=== PATIENT | male | born 1960 | race Caucasian/White ===

== ENCOUNTER 2022-10-09 10:44 | Inpatient (IN) | payer MEDICAID, SELFPAY ==
[2022-10-09 12:29] LABS: ALT (SGPT) 17 U/L (8-55); AST (SGOT) 31 U/L (5-34); Albumin 2.8 g/dL (3.4-4.8); Alkaline Phosphatase 85 U/L (40-110); Anion Gap 17 mmol/L (10-20); BUN (Urea Nitrogen) 21 mg/dL (8.4-25.7); Bilirubin, Total 0.3 mg/dL (0.2-1.2); Calc. Creatinine Clearance 0 mL/min (70-130); Calcium 7.5 mg/dL (7.8-10.44); Carbon Dioxide 21 mmol/L (23-31); Chloride 96 mmol/L (98-107); Estimated GFR 109; Globulin 2.3 g/dL (2.4-3.5); Glucose 86 mg/dL (80-115); Potassium 3.9 mmol/L (3.5-5.1); Protein, Total 5.1 g/dL (5.8-8.1); Sodium 130 mmol/L (136-145)
[2022-10-09] MEDS ORDERED: Ondansetron PF 4 MG/2 ML Vial ONE ×2 (12:33→18:38)
[2022-10-09 12:39] LABS: #Monocytes 0.5 10x3/uL (0.0-1.1); #Neutrophils 6.4 10x3/uL (1.5-8.4); %Basophils 0.2 % (0.0-2.0); %Lymphocytes 13.4 % (18.0-47.0); %Monocytes 6.6 % (0.0-10.0); %Neutrophils 79.3 % (40.0-75.0); Hematocrit 29.6 % (38.8-50.0); Hemoglobin 9.6 g/dL (13.5-17.5); Mean Corpuscular HGB CONC 32.4 g/dL (32.0-36.0); Mean Corpuscular Hemoglobin 23.8 pg (27.0-33.0); Mean Corpuscular Volume 73.3 fl (81.2-95.1); Mean Platelet Volume 8.9 fl (7.4-10.4); Platelet Count 528 10x3/uL (150-450); RBC Distribution Width 27.1 % (11.5-14.5); Red Blood Cell (RBC) Count 4.04 10x6/uL (4.32-5.72)
[2022-10-09 12:50] LABS: INR-International Normal Ratio 1.2; PTT 32.1 sec (22.0-33.0)
[2022-10-09 13:24] LABS: Anisocytosis SLIGHT = 6-15 cells (100X) (0-5/hpf); Hypochromia SLIGHT = 6-15 cells (100X) (0-5/hpf)
[2022-10-09 13:25] LABS: Elliptocytes SLIGHT = 2-5 cells (100X) (0-1/hpf); Target Cells SLIGHT = 2-5 cells (100X) (0-1/hpf)
[2022-10-09] MEDS ORDERED: Ondansetron PF 4 MG/2 ML Vial IVP PRN (15:08)
[2022-10-09] MEDS ORDERED: Fentanyl 250 MCG/5 ML VIAL ONE (18:03)
[2022-10-09] MEDS ORDERED: Midazolam HCl 2 mg/2 ml Vial ONE (18:03)
[2022-10-09] MEDS ORDERED: PROPOFOL 20 ML ONE (18:03)
[2022-10-09 18:28] LABS: Bilirubin 1+ (Negative); Blood, Urine 10 (Negative); Glucose, Urine (Dipstick) Normal (Negative); Ketone, Urine 50 mg/dL (Negative); Leukocyte 25 (Negative); Protein, Urine (Dipstick) 30 mg/dl (Neg-Trace)
[2022-10-09 18:33] LABS: Clarity Clear (Clear)
[2022-10-09] MEDS ORDERED: Succinylcholine 200 MG/10 ml SYRINGE FS ONE (18:38)
[2022-10-09] MEDS ORDERED: PHENYLEPHRINE-NS 100 MCG/ML 10 ML SYRINGE ONE (18:38)
[2022-10-09] MEDS ORDERED: Lidocaine 4% PF 5 ML AMP ONE (18:38)
[2022-10-09] MEDS ORDERED: Dexamethasone 4 mg/ml Vial ONE (18:38)
[2022-10-09] MEDS ORDERED: Rocuronium Bromide 10 MG/ML (10ML VIAL) ONE (18:38)
[2022-10-09] MEDS ORDERED: ePHEDrine Sulfate 50 MG/10 ML VIAL ONE (18:39)
[2022-10-09] MEDS ORDERED: Piperacillin/Tazobactam 3.375 GM VIAL ONE (18:43)
[2022-10-09] MEDS ORDERED: Albumin 5% 250 ML ONE (19:05)
[2022-10-09 19:13] LABS: Nitrite Negative (Negative)
[2022-10-09 19:14] LABS: Bacteria/HPF None Seen HPF (None Seen); CAUTI Indications for Culture Pelvic or flank pain; RBC/HPF None Seen HPF (0-3); Squamous Epithelial 0-3 HPF (0-3); Urine Culture Reflex No No; WBC/HPF None Seen HPF (0-3)
[2022-10-09] MEDS ORDERED: SUGAMMADEX SODIUM 200 MG/2 ML VIAL ONE (20:08)
[2022-10-09] MEDS ORDERED: fentaNYL 50 mcg/mL 1 mL Vial ONE (21:08)
[2022-10-09] MEDS ORDERED: Famotidine/PF 20 mg/2ml Vial SLOW IVP SCH (22:15)
[2022-10-09] MEDS ORDERED: Morphine 4 MG/ML VIAL SLOW IVP PRN (22:31)
[2022-10-09] MEDS ORDERED: Piperacillin/Tazobactam 3.375 GM in Sodium Chloride 0.9% 100 ML IVPB SCH (22:45)
[2022-10-09 22:51] VITALS: BMI 22.1
[2022-10-09] MEDS: Piperacillin/Tazobactam 3.375 GM in Sodium Chloride 0.9% 100 ML IVPB SCH (23:24)
[2022-10-09] MEDS: Lactated Ringer's 1,000 ML IV SCH (23:24)
[2022-10-09] MEDS: Nicotine 14 MG PATCH TD SCH (23:25)
[2022-10-09] MEDS: Ketorolac Tromethamine 30 MG/ML VIAL IVP SCH (23:25)
[2022-10-10 04:44] LABS: ALT (SGPT) 14 U/L (8-55); AST (SGOT) 23 U/L (5-34); Albumin 2.2 g/dL (3.4-4.8); Alkaline Phosphatase 57 U/L (40-110); Anion Gap 14 mmol/L (10-20); BUN (Urea Nitrogen) 19 mg/dL (8.4-25.7); Bilirubin, Total 0.3 mg/dL (0.2-1.2); Calc. Creatinine Clearance 125 mL/min (70-130); Calcium 6.8 mg/dL (7.8-10.44); Carbon Dioxide 19 mmol/L (23-31); Chloride 104 mmol/L (98-107); Estimated GFR 111; Globulin 1.6 g/dL (2.4-3.5); Glucose 101 mg/dL (80-115); Potassium 2.6 mmol/L (3.5-5.1); Protein, Total 3.8 g/dL (5.8-8.1); Sodium 134 mmol/L (136-145)
[2022-10-10] MEDS: Potassium Chloride 20 MEQ in Premix Bag 1 BAG IVPB SCH ×4 (05:27→13:25)
[2022-10-10] MEDS ORDERED: Calcium Gluc 4.6 MEQ/10 ML (100 MG/ML) SLOW IVP SCH (05:30)
[2022-10-10] MEDS ORDERED: Sodium Chloride 0.9% 100 ML ONE (06:01)
[2022-10-10] MEDS ORDERED: Piperacillin/Tazobactam 3.375 GM VIAL ONE (06:01)
[2022-10-10] MEDS: Piperacillin/Tazobactam 3.375 GM in Sodium Chloride 0.9% 100 ML IVPB SCH ×3 (06:44→22:15)
[2022-10-10] MEDS: Ketorolac Tromethamine 30 MG/ML VIAL IVP SCH ×4 (06:44→21:04)
[2022-10-10] MEDS: Lactated Ringer's 1,000 ML IV SCH (06:47)
[2022-10-10] MEDS ORDERED: Potassium Chloride 40 MEQ in Premix Bag 1 BAG IVPB STA (07:32)
[2022-10-10] MEDS: Famotidine/PF 20 mg/2ml Vial SLOW IVP SCH ×2 (07:48→20:52)
[2022-10-10] MEDS: D5 1/2 NS w/20 mEq KCL 1,000 ML IV SCH ×2 (09:41→17:08)
[2022-10-10] MEDS: Morphine 2 MG/ML VIAL SLOW IVP PRN (09:44)
[2022-10-10] MEDS ORDERED: Naloxone HCl 0.4 mg/ml Vial IV PRN (11:03)
[2022-10-10] MEDS ORDERED: Naloxone HCl 0.4 mg/ml Vial IV SCH (11:15)
[2022-10-10 15:24] LABS: Anion Gap 13 mmol/L (10-20); BUN (Urea Nitrogen) 18 mg/dL (8.4-25.7); Calc. Creatinine Clearance 121 mL/min (70-130); Calcium 7.2 mg/dL (7.8-10.44); Carbon Dioxide 20 mmol/L (23-31); Chloride 105 mmol/L (98-107); Estimated GFR 110; Glucose 115 mg/dL (80-115); Phosphorus 2.5 mg/dL (2.3-4.7); Potassium 3.2 mmol/L (3.5-5.1); Sodium 135 mmol/L (136-145)
[2022-10-10] MEDS: Nicotine 14 MG PATCH TD SCH (22:45)
[2022-10-11] MEDS: D5 1/2 NS w/20 mEq KCL 1,000 ML IV SCH ×2 (01:21→08:42)
[2022-10-11] MEDS: Ketorolac Tromethamine 30 MG/ML VIAL IVP SCH ×4 (03:07→21:12)
[2022-10-11 05:17] LABS: Anion Gap 14 mmol/L (10-20); BUN (Urea Nitrogen) 18 mg/dL (8.4-25.7); Calc. Creatinine Clearance 121 mL/min (70-130); Calcium 7.2 mg/dL (7.8-10.44); Carbon Dioxide 17 mmol/L (23-31); Chloride 105 mmol/L (98-107); Estimated GFR 110; Glucose 118 mg/dL (80-115); Magnesium 1.8 mg/dL (1.6-2.6); Potassium 3.5 mmol/L (3.5-5.1); Sodium 132 mmol/L (136-145)
[2022-10-11 05:20] LABS: Phosphorus 1.4 mg/dL (2.3-4.7)
[2022-10-11] MEDS: Piperacillin/Tazobactam 3.375 GM in Sodium Chloride 0.9% 100 ML IVPB SCH ×3 (05:52→21:13)
[2022-10-11] MEDS: Morphine 2 MG/ML VIAL SLOW IVP PRN ×5 (06:01→23:35)
[2022-10-11] MEDS: Famotidine/PF 20 mg/2ml Vial SLOW IVP SCH ×2 (08:18→21:11)
[2022-10-11] MEDS ORDERED: Sodium Phosphate 30 MMOL in Sodium Chloride 0.9% 250 ML 250 ML IVPB SCH (09:00)
[2022-10-11] MEDS: Nicotine 14 MG PATCH TD SCH (21:13)
[2022-10-12] MEDS: Ketorolac Tromethamine 30 MG/ML VIAL IVP SCH ×4 (03:24→21:11)
[2022-10-12] MEDS: Piperacillin/Tazobactam 3.375 GM in Sodium Chloride 0.9% 100 ML IVPB SCH ×3 (05:43→21:12)
[2022-10-12 06:33] LABS: Phosphorus 2.7 mg/dL (2.3-4.7)
[2022-10-12 06:36] LABS: Anion Gap 12 mmol/L (10-20); BUN (Urea Nitrogen) 21 mg/dL (8.4-25.7); Calc. Creatinine Clearance 107 mL/min (70-130); Calcium 7.3 mg/dL (7.8-10.44); Carbon Dioxide 18 mmol/L (23-31); Chloride 105 mmol/L (98-107); Estimated GFR 106; Glucose 98 mg/dL (80-115); Magnesium 1.8 mg/dL (1.6-2.6); Potassium 3.4 mmol/L (3.5-5.1); Sodium 132 mmol/L (136-145)
[2022-10-12] MEDS: Famotidine/PF 20 mg/2ml Vial SLOW IVP SCH ×2 (09:30→21:11)
[2022-10-12] MEDS: Morphine 2 MG/ML VIAL SLOW IVP PRN (09:48)
[2022-10-12] MEDS ORDERED: Bupivacaine HCl 0.5%/Epinephrine 1:200,000/PF 30 ml Vial ONE (12:45)
[2022-10-12] MEDS ORDERED: Propofol 1,000 MG/100 ML VIAL IV ONE (13:21)
[2022-10-12] MEDS ORDERED: HYDROmorphone 0.5 MG/0.5 ML SYRINGE ONE (13:21)
[2022-10-12] MEDS ORDERED: SUGAMMADEX SODIUM 200 MG/2 ML VIAL ONE (13:21)
[2022-10-12] MEDS ORDERED: Rocuronium Bromide 10 MG/ML (10ML VIAL) ONE (13:23)
[2022-10-12] MEDS ORDERED: Esmolol 100 MG/10 ML VIAL ONE (13:23)
[2022-10-12] MEDS ORDERED: Lidocaine 2% PF 5 ML VIAL ONE (13:34)
[2022-10-12] MEDS ORDERED: PHENYLEPHRINE-NS 100 MCG/ML 10 ML SYRINGE ONE (14:18)
[2022-10-12] MEDS ORDERED: Vasopressin 20 UNITS/ML VIAL ONE ×2 (14:18→14:42)
[2022-10-12] MEDS ORDERED: EPINEPHrine 1 MG/10 ML Abboject SYRINGE ONE (14:18)
[2022-10-12] MEDS ORDERED: Phenylephrine 40 MG/NS 250 ML 0 ML ONE (14:19)
[2022-10-12] MEDS ORDERED: Phenylephrine 10 MG/ML VIAL ONE (14:19)
[2022-10-12] MEDS ORDERED: Norepinephrine 4 MG/4 ML VIAL ONE (14:41)
[2022-10-12] MEDS ORDERED: Albumin 25% 25 GM/100 ML BOT IVPB SCH ×2 (15:00→17:30)
[2022-10-12] MEDS ORDERED: Electrolyte Replacement Protocol 1 EACH FS PRN (16:48)
[2022-10-12] MEDS ORDERED: Magnesium 2 GM/50 ML(in water) 2 GM in Premix Bag 1 BAG IVPB SCH (17:15)
[2022-10-12 17:25] LABS: ALV-art Gradient 330.725 mmHg (0-20); Actual Bicarbonate (HCO3a) 9.7 mEq/L (22-28); Base Excess (BEa) -22.8 mEq/L (-2.0 to +3.0); CO2 Tension 48.7 mmHg (35.0-45.0); Calcium, Ionized (arterial) 1.09 mmol/L (1.12-1.30); Carboxyhemoglobin (COHb) 0.2 gm% (0.0-3.0); Hematocrit-ABG 39 % (42.0-52.0); Hemoglobin (Hb) 13.1 g/dL (14.0-18.0); O2 Tension (PaO2), arterial 321.4 mmHg (> 80.0); Potassium - ABG Lab 4.05 mmol/L (3.70-5.30); Puncture Site Arterial Line; pH, Arterial 6.916 (7.35-7.45)
[2022-10-12] MEDS ORDERED: Sodium Bicarb 50 MEQ/50 ML VIAL IVP SCH (17:30)
[2022-10-12] MEDS: DEXTROSE IV SCH (17:54)
[2022-10-12] MEDS: ADMIXTURE FEE IV SCH (17:54)
[2022-10-12] MEDS: SODIUM BICARBONATE IV SCH (17:54)
[2022-10-12] MEDS: WATER IV SCH (17:54)
[2022-10-12] MEDS: NOREPINEPHRINE 8 MG/250 ML-D5W 250 ML IVPB SCH ×2 (17:59→21:36)
[2022-10-12] MEDS: Potassium Chloride 20 MEQ in Premix Bag 1 BAG IVPB SCH ×2 (18:00→19:23)
[2022-10-12 19:06] LABS: Actual Bicarbonate (HCO3a) 13.5 mEq/L (22-28); Base Excess (BEa) -11.1 mEq/L (-2.0 to +3.0); CO2 Tension 26.8 mmHg (35.0-45.0); Calcium, Ionized (arterial) 1.03 mmol/L (1.12-1.30); Carboxyhemoglobin (COHb) 0.1 gm% (0.0-3.0); Hematocrit-ABG 34 % (42.0-52.0); Hemoglobin (Hb) 11.4 g/dL (14.0-18.0); O2 Tension (PaO2), arterial 140.9 mmHg (> 80.0); Potassium - ABG Lab 4.34 mmol/L (3.70-5.30); Puncture Site Arterial Line
[2022-10-12] MEDS: Hydrocortisone Sod Succ/PF 100 mg/2 ml Vial IVP SCH ×2 (19:22→23:50)
[2022-10-12] MEDS ORDERED: Phenylephrine 40 MG/NS 250 ML 250 ML ONE (20:26)
[2022-10-12] MEDS ORDERED: Sodium Chloride 0.9% 1,000 ML IV SCH ×2 (21:00→22:00)
[2022-10-12] MEDS: Vasopressin 20 UNITS, Admixture Fee 1 EACH in Sodium Chloride 0.9% 50 ML IV SCH (22:28)
[2022-10-12] MEDS: Phenylephrine 40 MG/NS 250 ML 40 MG in Premix Bag 1 BAG IVPB SCH (22:28)
[2022-10-12] MEDS: EPINEPHrine 4 MG in Dextrose 5% in Water 250 ML IVP SCH (23:59)
[2022-10-13] MEDS: ADMIXTURE FEE IV SCH ×4 (00:46→22:03)
[2022-10-13] MEDS: SODIUM BICARBONATE IV SCH ×4 (00:46→22:03)
[2022-10-13] MEDS: DEXTROSE IV SCH ×4 (00:46→22:03)
[2022-10-13] MEDS: WATER IV SCH ×4 (00:46→22:03)
[2022-10-13] MEDS: Phenylephrine 40 MG/NS 250 ML 40 MG in Premix Bag 1 BAG IVPB SCH ×9 (01:19→23:48)
[2022-10-13] MEDS: NOREPINEPHRINE 8 MG/250 ML-D5W 250 ML IVPB SCH ×5 (01:19→20:25)
[2022-10-13] MEDS: Ketorolac Tromethamine 30 MG/ML VIAL IVP SCH ×4 (03:17→20:34)
[2022-10-13 03:33] LABS: Actual Bicarbonate (HCO3a) 7.5 mEq/L (22-28); Base Excess (BEa) -21.5 mEq/L (-2.0 to +3.0); CO2 Tension 27.9 mmHg (35.0-45.0); Calcium, Ionized (arterial) 0.91 mmol/L (1.12-1.30); Carboxyhemoglobin (COHb) 0.3 gm% (0.0-3.0); Hematocrit-ABG 33 % (42.0-52.0); Hemoglobin (Hb) 11.2 g/dL (14.0-18.0); O2 Tension (PaO2), arterial 113.9 mmHg (> 80.0); Potassium - ABG Lab 4.47 mmol/L (3.70-5.30); Puncture Site Arterial Line; RapidComm Collect By CBN
[2022-10-13 03:35] LABS: ALV-art Gradient 279.025 mmHg (0-20)
[2022-10-13 03:53] LABS: Hematocrit 35.3 % (38.8-50.0); Hemoglobin 11.1 g/dL (13.5-17.5); Mean Corpuscular HGB CONC 31.4 g/dL (32.0-36.0); Mean Corpuscular Volume 82.7 fl (81.2-95.1); Mean Platelet Volume 9.4 fl (7.4-10.4); Platelet Count 193 10x3/uL (150-450); RBC Distribution Width 26.9 % (11.5-14.5); Red Blood Cell (RBC) Count 4.27 10x6/uL (4.32-5.72); White Blood Cell (WBC) Count 14.1 10x3/uL (3.5-10.5)
[2022-10-13 04:12] LABS: ALT (SGPT) 533 U/L (8-55); AST (SGOT) 1602 U/L (5-34); Albumin 1.7 g/dL (3.4-4.8); Alkaline Phosphatase 54 U/L (40-110); BUN (Urea Nitrogen) 23 mg/dL (8.4-25.7); Bilirubin, Total 1.6 mg/dL (0.2-1.2); Calc. Creatinine Clearance 55 mL/min (70-130); Calcium 5.4 mg/dL (7.8-10.44); Carbon Dioxide Less than 8 mmol/L (23-31); Chloride 110 mmol/L (98-107); Estimated GFR 61; Globulin 0.9 g/dL (2.4-3.5); Glucose 197 mg/dL (80-115); Magnesium 2.1 mg/dL (1.6-2.6); Phosphorus 6.9 mg/dL (2.3-4.7); Potassium 4.8 mmol/L (3.5-5.1); Protein, Total 2.6 g/dL (5.8-8.1); Sodium 133 mmol/L (136-145)
[2022-10-13 04:21] LABS: MDiff Complete? YES
[2022-10-13] MEDS: Vasopressin 20 UNITS, Admixture Fee 1 EACH in Sodium Chloride 0.9% 50 ML IV SCH ×3 (04:22→22:34)
[2022-10-13 04:30] LABS: Band 44 % (5-11); Lymphocytes 6 % (21-51); Metamyelocyte 22 % (0-0); Monocytes 2 % (0-10); Myelocyte 16 % (0-0); Neutrophil 7 % (42-75); Other Cell Types 3
[2022-10-13 04:33] LABS: Elliptocytes SLIGHT = 2-5 cells (100X) (0-1/hpf); Target Cells SLIGHT = 2-5 cells (100X) (0-1/hpf)
[2022-10-13 04:34] LABS: Platelet Adequacy Comment Appears Adequate; Toxic Granulation SLIGHT; Vacuoles SLIGHT
[2022-10-13 04:35] LABS: Anisocytosis MODERATE=16-30 cells (100X) (0-5/hpf); Reflex for Review?? YES
[2022-10-13] MEDS: Hydrocortisone Sod Succ/PF 100 mg/2 ml Vial IVP SCH ×4 (06:29→23:11)
[2022-10-13] MEDS: Piperacillin/Tazobactam 3.375 GM in Sodium Chloride 0.9% 100 ML IVPB SCH ×3 (06:31→23:11)
[2022-10-13] MEDS ORDERED: Albumin 25% 25 GM/100 ML BOT IVPB SCH (08:00)
[2022-10-13] MEDS ORDERED: Sodium Bicarb 50 MEQ/50 ML VIAL IVP SCH (08:00)
[2022-10-13] MEDS: Famotidine/PF 20 mg/2ml Vial SLOW IVP SCH ×2 (08:46→20:34)
[2022-10-13] MEDS: EPINEPHrine 4 MG in Dextrose 5% in Water 250 ML IVP SCH ×3 (12:21→20:27)
[2022-10-14] MEDS: NOREPINEPHRINE 8 MG/250 ML-D5W 250 ML IVPB SCH ×3 (00:10→10:16)
[2022-10-14 01:21] LABS: Base Excess (BEa) -20.3 mEq/L (-2.0 to +3.0); Calcium, Ionized (arterial) 0.84 mmol/L (1.12-1.30); Carboxyhemoglobin (COHb) 0.2 gm% (0.0-3.0); Hematocrit-ABG 31 % (42.0-52.0); Hemoglobin (Hb) 10.4 g/dL (14.0-18.0); O2 Tension (PaO2), arterial 168.9 mmHg (> 80.0); Potassium - ABG Lab 4.57 mmol/L (3.70-5.30); Puncture Site Arterial Line; RapidComm Collect By CBN; pH, Arterial 7.091 (7.35-7.45)
[2022-10-14 01:40] LABS: Hematocrit 31.8 % (38.8-50.0); Mean Corpuscular HGB CONC 31.4 g/dL (32.0-36.0); Mean Corpuscular Volume 82.8 fl (81.2-95.1); Mean Platelet Volume 9.2 fl (7.4-10.4); Platelet Count 109 10x3/uL (150-450); RBC Distribution Width 26.3 % (11.5-14.5); Red Blood Cell (RBC) Count 3.84 10x6/uL (4.32-5.72); White Blood Cell (WBC) Count 13.7 10x3/uL (3.5-10.5)
[2022-10-14] MEDS ORDERED: Calcium Gluc 4.6 MEQ/10 ML (100 MG/ML) ONE ×2 (01:45→01:54)
[2022-10-14 01:54] LABS: ALT (SGPT) 2287 U/L (8-55); Albumin 1.7 g/dL (3.4-4.8); Alkaline Phosphatase 122 U/L (40-110); BUN (Urea Nitrogen) 23 mg/dL (8.4-25.7); Bilirubin, Total 2.1 mg/dL (0.2-1.2); Calc. Creatinine Clearance 34 mL/min (70-130); Calcium 5.3 mg/dL (7.8-10.44); Carbon Dioxide Less than 8 mmol/L (23-31); Chloride 100 mmol/L (98-107); Estimated GFR 34; Glucose 209 mg/dL (80-115); Potassium 4.9 mmol/L (3.5-5.1); Protein, Total 2.7 g/dL (5.8-8.1); Sodium 130 mmol/L (136-145)
[2022-10-14] MEDS ORDERED: Calcium Gluc 4.6 MEQ/10 ML (100 MG/ML) SLOW IVP SCH ×2 (02:00)
[2022-10-14 02:08] LABS: MDiff Complete? YES
[2022-10-14 02:16] LABS: AST (SGOT) Greater than 3500 U/L (5-34)
[2022-10-14 02:49] LABS: Band 63 % (5-11); Lymphocytes 8 % (21-51); Metamyelocyte 8 % (0-0); Monocytes 3 % (0-10); Myelocyte 1 % (0-0); Neutrophil 17 % (42-75); Nucleated RBC (Manual Ct) 1 % (0)
[2022-10-14 02:51] LABS: Anisocytosis SLIGHT = 6-15 cells (100X) (0-5/hpf)
[2022-10-14 02:52] LABS: Elliptocytes SLIGHT = 2-5 cells (100X) (0-1/hpf); Platelet Adequacy Comment Appears Decreased
[2022-10-14] MEDS: Ketorolac Tromethamine 30 MG/ML VIAL IVP SCH (04:18)
[2022-10-14] MEDS: SODIUM BICARBONATE IV SCH (05:03)
[2022-10-14] MEDS: DEXTROSE IV SCH (05:03)
[2022-10-14] MEDS: WATER IV SCH (05:03)
[2022-10-14] MEDS: ADMIXTURE FEE IV SCH (05:03)
[2022-10-14] MEDS: Piperacillin/Tazobactam 3.375 GM in Sodium Chloride 0.9% 100 ML IVPB SCH ×2 (06:10→14:17)
[2022-10-14] MEDS: Hydrocortisone Sod Succ/PF 100 mg/2 ml Vial IVP SCH ×2 (06:10→11:34)
[2022-10-14] MEDS ORDERED: Sodium Bicarb 50 MEQ/50 ML VIAL IVP SCH (08:00)
[2022-10-14] MEDS ORDERED: Famotidine/PF 20 mg/2ml Vial SLOW IVP SCH (09:00)
[2022-10-14] MEDS: Vasopressin 20 UNITS, Admixture Fee 1 EACH in Sodium Chloride 0.9% 50 ML IV SCH (09:04)
[2022-10-14] MEDS: EPINEPHrine 4 MG in Dextrose 5% in Water 250 ML IVP SCH ×2 (09:29→15:24)
[2022-10-14] MEDS ORDERED: Albumin 25% 25 GM/100 ML BOT IVPB SCH (10:00)
[2022-10-14 10:31] LABS: Magnesium 2.1 mg/dL (1.6-2.6)
[2022-10-14 10:48] LABS: Phosphorus 8.7 mg/dL (2.3-4.7)
[2022-10-14] MEDS ORDERED: Sodium Bicarbonate 150 MEQ in Dextrose 5% in Water 1,000 ML IV SCH (11:45)
[2022-10-14 12:19] VITALS: TEMP 97.4
[2022-10-14 12:36] LABS: Anion Gap 31 mmol/L (10-20); BUN (Urea Nitrogen) 23 mg/dL (8.4-25.7); Calc. Creatinine Clearance 28 mL/min (70-130); Carbon Dioxide 11 mmol/L (23-31); Chloride 94 mmol/L (98-107); Estimated GFR 28; Glucose 192 mg/dL (80-115); Potassium 5.1 mmol/L (3.5-5.1); Sodium 131 mmol/L (136-145)
[2022-10-14 12:45] LABS: Calcium 5.8 mg/dL (7.8-10.44)
[2022-10-14] MEDS ORDERED: Calcium Gluconate 13.8 MEQ, Admixture Fee 1 EACH in Sodium Chloride 0.9% 100 ML IVPB SCH (15:00)
[2022-10-14] MEDS: Phenylephrine 40 MG/NS 250 ML 40 MG in Premix Bag 1 BAG IVPB SCH (15:22)
[2022-10-14] MEDS ORDERED: Morphine 4 MG/ML VIAL SLOW IVP PRN (15:48)
[2022-10-14] MEDS ORDERED: Lorazepam 2 MG/ML VIAL SLOW IVP PRN (15:49)
[2022-10-14 18:16] VITALS: BP 100/68
[2022-10-14] MEDS ORDERED: Heparin 5,000 UNITS/ML VIAL SC SCH (21:00)
== END 2022-10-14 16:17 | disposition expired | DRG 329 ==
LOC: CSHERS 10:44 → CSHTELE 22:10 → CSHIMCU 10-12 16:06
PROVIDERS: ADMIT Surgery; ATTEND Surgery
PROC: 0DTF0ZZ Resection of Right Large Intestine, Open Approach (ICD-10-PCS; principal; 2022-10-09)
PROC: 0D9670Z Drainage of Stomach with Drainage Device, Via Natural or Artificial Opening (ICD-10-PCS; 2022-10-09)
PROC: 0DTF0ZZ Resection of Right Large Intestine, Open Approach (ICD-10-PCS; 2022-10-12)
DX: K56.609 Unspecified intestinal obstruction, unspecified as to partial versus complete obstruction (principal); A41.9 Sepsis, unspecified organism; R65.21 Severe sepsis with septic shock; J96.00 Acute respiratory failure, unspecified whether with hypoxia or hypercapnia; K65.9 Peritonitis, unspecified; K72.00 Acute and subacute hepatic failure without coma; E46 Unspecified protein-calorie malnutrition; R64 Cachexia; K91.89 Other postprocedural complications and disorders of digestive system; K55.9 Vascular disorder of intestine, unspecified; N17.9 Acute kidney failure, unspecified; E87.20 Acidosis, unspecified; D64.9 Anemia, unspecified; R63.4 Abnormal weight loss; Z68.22 Body mass index [BMI] 22.0-22.9, adult; Z98.890 Other specified postprocedural states; J44.9 Chronic obstructive pulmonary disease, unspecified; F17.210 Nicotine dependence, cigarettes, uncomplicated; E86.0 Dehydration; E87.6 Hypokalemia; Y83.8 Other surgical procedures as the cause of abnormal reaction of the patient, or of later complication, without mention of misadventure at the time of the procedure
CPT/HCPCS: 36415; 36430; 71045; 74018; 74177; 76770; 80048; 80053; 81001; 82140; 82378; 82533; 82570; 82805; 83690; 83735; 84100; 84134; 85025; 85060; 85610; 85730; 86850; 86900; 86901; 88309; 93005; 94002; 94003; 94760; 94762; 96360; 96361; 96374; J0171; J0612; J1100; J1170; J1642; J1650; J1720; J1885; J2001; J2060; J2250; J2270; J2272; J2370; J2405; J2543; J2704; J3010; J3475; J3480; J3490; J7050; J7070; J7120; P9016; P9045; P9047; S0028